=== PATIENT | female | born 1945 | race Caucasian/White ===

== ENCOUNTER 2020-03-02 14:24 | Emergency (ER) | payer MEDICARE ==
[~2020-03-02] VITALS: Ht 142.2 cm; Wt 58.0 kg
[2020-03-02] MEDS ORDERED: AMOXICILLIN/POTASSIUM CLAVULANATE 875/125MG TAB PO ONE (17:00)
[2020-03-02] MEDS ORDERED: PREDNISONE 20MG TABLET PO ONE (17:00)
[2020-03-02 18:43] VITALS: BP 128/70
== END 2020-03-02 18:44 | disposition home or self-care (01) ==
LOC: ER 14:24
DX: U07.1 COVID-19 (principal); I10 Essential (primary) hypertension; J44.1 Chronic obstructive pulmonary disease with (acute) exacerbation
CPT/HCPCS: 71045; 87635; 99283; C9803; J7512